=== PATIENT | male | born 1975 | race Caucasian/White ===

== ENCOUNTER 2019-04-18 08:44 | Emergency (ER) | payer OTHER ==
[~2019-04-18] VITALS: Ht 182.9 cm; Wt 72.6 kg
[2019-04-18 11:25] VITALS: BP 144/95
== END 2019-04-18 11:27 | disposition left against medical advice (07) ==
LOC: M.ERS 08:44
DX: L30.9 Dermatitis, unspecified (principal); F17.200 Nicotine dependence, unspecified, uncomplicated; Z88.5 Allergy status to narcotic agent